=== PATIENT | male | born 1975 | race Hispanic/Latino ===

== ENCOUNTER 2021-01-13 08:23 | Outpatient (CLI) | payer OTHER ==
--- NOTE | 2021-01-13 09:41 | Ultrasound Report ---
ULTRASOUND UNLISTED PROCEDURE BACK HISTORY: Lump, mass on left upper back TECHNIQUE: Grayscale ultrasound with color Doppler imaging. FINDINGS: Targeted ultrasound in the left upper back at the site of a palpable lesion was performed. The images demonstrate a homogeneous ovoid masslike lesion measuring 7.7 x 1.6 x 6.5 cm. No internal perfusion, calcification or cystic change. This appears similar to the echogenicity of fat. IMPRESSION: Probable lipoma. If further evaluation is needed CT or MRI could be obtained. Signer Name: Miki Rodriguez Jr, MD Signed: 01/13/2021 9:37 AM Workstation Name: [id number]
== END 2021-01-13 08:24 | disposition home or self-care (01) ==
LOC: US 08:23
DX: R22.2 Localized swelling, mass and lump, trunk (principal)
CPT/HCPCS: 76999